=== PATIENT | female | born 2000 | race Asian ===

== ENCOUNTER 2022-06-11 00:23 | Emergency (ER) | payer BC, SELFPAY ==
[2022-06-11 00:30] VITALS: BP 126/80; BP 141/86; PULSE 92; PULSE 96; RESP 20; TEMP 37.2; O2SAT 99; BMI 24.3
[2022-06-11 00:41] VITALS: BP 114/69; PULSE 89; RESP 20; O2SAT 100
--- NOTE | 2022-06-11 00:48 | ED.ALLEREA ---
HPI - Allergic Reaction General Chief complaint: Allergic Reaction Stated complaint: Allergic Reaction Time Seen by Provider: 06/11/22 00:38 Source: patient Mode of arrival: EMS Limitations: no limitations History of Present Illness HPI narrative: Patient comes to the emergency room via EMS from school. Patient states that approximately 14 hours ago patient started having hives around the face and the neck, very itchy. Patient went to the health center and was given Benadryl. Patient states that the only new medication that she has been taking is Wellbutrin which was started 2 weeks ago. Patient has been taking Lamictal for over a year. Earlier today, patient informed her psychiatrist about the side effect, patient was instructed to stop taking Wellbutrin. At this time, patient complaining only of hives, itchiness in forehead chest and abdomen. Denies any trouble breathing, no angioedema Related Data Previous Rx's Medication Instructions Recorded famotidine 40 mg tablet (Pepcid) 40 mg PO DAILY #4 tabs 06/11/22 prednisone 20 mg tablet 20 mg PO DAILY #4 tabs 06/11/22 Allergies Allergy/AdvReac Type Severity Reaction Status Date / Time bupropion Allergy Intermediate rash Unverified 06/11/22 00:44 Review of Systems Review of Systems: Constitutional : No Weight loss, No Fever, No Chills, No Night Sweats, No Fatigue, No Malaise ENT/Mouth : No Hearing loss, No Ear Pain, No Nasal Congestion, No Sinus Pain, No Hoarseness, No sore throat, No Rhinorrhea, No Swallowing Difficulty Eyes: No Eye Pain, No Swelling, No Redness, No Foreign Body, No Discharge, No Vision Changes Cardiovascular : No Chest Pain, No SOB, No Dyspnea on Exertion, No Orthopnea, No Edema, No Palpitations Respiratory : No Cough, No Sputum, No Wheezing, No Smoke Exposure, No Dyspnea Gastrointestinal : No Nausea, No Vomiting, No Diarrhea, No Constipation, No abdominal Pain, No Hematochezia, No Melena Genitourinary : no irregular bleeding, No Dysuria, No Urinary Frequency, No Hematuria, No Urinary Incontinence, No Urgency, No Flank Pain, No Urinary Flow Changes, No Hesitancy Musculoskeletal : No joint pain, No Myalgias, No Joint Swelling Skin : Complaining of itchy hives Neuro : No Weakness, No Numbness, No Paresthesias, No Loss of Consciousness, No Dizziness, No Headache Psych : No Anxiety/Panic, No Depression, No SI/HI/AH/VH, No Social Issues, Heme/Lymph: No Bruising, No Bleeding,No Lymphadenopathy Endocrine : No Polyuria, No Polydipsia, No Temperature Intolerance [facility] Past Medical History Medical History (Updated 06/11/22 @ 03:03 by Marichuy Barbosa MD) Depression Social History Social History Advance Directives: No Physical Exam ED Vital Signs: Vital Signs - 24 hr 06/11/22 00:30 06/11/22 00:41 Temperature 98.9 F Pulse Rate 92 89 Respiratory Rate 20 20 Blood Pressure 126/80 114/69 Pulse Oximetry 99 100 Oxygen Delivery Method Room Air Room Air BMI result Body Mass Index 24.3 Const Other: Appearance: Alert. Oriented X3. No acute distress. Eyes: Pupils equal, round and reactive to light. ENT: Pharynx normal. No angioedema Neck: Normal inspection. Neck supple. No lymph nodes noted. No crepitus CVS: Normal heart rate and rhythm. Pulses normal. Normal S1 and S2 Respiratory: No respiratory distress. Breath sounds normal. No Wheezing. No rales Abdomen: Soft and nontender. No rigidity. No distention. Skin: Skin warm and dry. urticaria on face, neck, chest and abdomen, very mild in the back, very minimal in extremities Extremities: No lower extremity edema. No Lacerations. No Rash Neuro: Oriented X 3. No motor deficit. No sensory deficit. Moving all extremities. No slurred speech. CN 2 through 12 grossly intact Psych: calm, cooperative, normal affect Course Course Course Narrative: -patient receiving IV fluids, Benadryl, Solu-Medrol and Pepcid. At this time, EpiPen is not indicated. Medications Administered Discontinued Medications Generic Name Dose Route Start Last Admin Trade Name Freq PRN Reason Stop Dose Admin Diphenhydramine HCl 50 mg 06/11/22 00:44 06/11/22 00:54 Diphenhydramine Hcl 50 Mg/Ml Vial IVPUSH 06/11/22 00:45 50 mg ONCE ONE Administration Famotidine 20 mg 06/11/22 00:44 06/11/22 00:54 Famotidine/Pf 20 Mg/2 Ml Vial IVPUSH 06/11/22 00:45 20 mg ONCE ONE Administration Sodium Chloride 1,000 mls @ 999 mls/hr 06/11/22 00:44 06/11/22 01:51 Ns IVCONT 06/11/22 01:44 Infused .Q1H1M ONE Infusion Methylprednisolone Sodium Succinate 125 mg 06/11/22 00:44 06/11/22 00:54 Methylprednisolone Sod Succ 125 Mg/2 Ml Vial IVPUSH 06/11/22 00:45 125 mg ONCE ONE Administration Medical Decision Making Medical Decision Making MDM Narrative: -patient feeling much better, no longer itching, rash/hives nearly disappeared. -patient instructed to stop taking Wellbutrin follow-up with her psychiatrist. Differential Diagnosis Differential Diagnoses: The differential diagnosis associated with the presentation includes (Environmental allergic reaction, food allergy reaction, medication reaction) Discharge Plan Discharge Clinical Impression: Allergic reaction Patient Disposition: Home, Self-Care Instructions: General Allergic Reaction (ED) Additional Instructions: Please stop taking Wellbutrin. Follow-up with her psychiatrist. Please follow-up with your primary care physician tomorrow. If you have any worsening or new symptoms, please return to the emergency room or call 911 Prescriptions: New prednisone 20 mg tablet 20 mg PO DAILY Qty: 4 0RF famotidine [Pepcid] 40 mg tablet 40 mg PO DAILY Qty: 4 0RF
[2022-06-11] MEDS: 0.9 % Sodium Chloride 1,000 ML 999 ML IVCONT (00:50)
[2022-06-11] MEDS: methylPREDNISolone Sod Succ 125 MG/2 ML VIAL IVPUSH (00:54)
[2022-06-11] MEDS: diphenhydrAMINE HCL 50 MG/ML VIAL IVPUSH (00:54)
[2022-06-11] MEDS: Famotidine/PF 20 MG/2 ML VIAL IVPUSH (00:54)
[2022-06-11 03:27] VITALS: BP 118/76; PULSE 73; RESP 18; O2SAT 100
== END 2022-06-11 03:29 | disposition home or self-care (01) ==
PROVIDERS: Emergency Provider Emergency Medicine
DX: L50.9 Urticaria, unspecified (principal); T43.295A Adverse effect of other antidepressants, initial encounter; Y92.213 High school as the place of occurrence of the external cause
CPT/HCPCS: 96361; 96374; 96375; 99284; J1200; J2930